=== PATIENT | female | born 1985 | race Caucasian/White ===

== ENCOUNTER 2017-02-17 14:28 | Emergency (ER) | payer SELFPAY ==
[2017-02-17 14:32] VITALS: BP 110/68
--- NOTE | 2017-02-17 15:58 | ER Document Report ---
HPI - HPI Patient complains to provider of: dental pain Onset: Other - wednesday Quality of pain: Achy Severity: Severe Pain Level: 4 Context: Patient presents emergency department with complaints of dental pain to the right bottom tooth. She reports she bit down on some ice and cracked her tooth on Wednesday. She reports she visiting from [place] has been taking Tylenol Motrin and nothing helping with the pain. She denies other symptoms such as fever vomiting diarrhea. She reports she plans on following up with her dentist when she returns to [facility] next week. Associated Symptoms: None Exacerbated by: Denies Relieved by: Denies Similar symptoms previously: No Recently seen / treated by doctor: No - DERM Skin Color: Normal Past Medical History - General Information source: Patient Last Menstrual Period: Implanon - Social History Smoking Status: Current Every Day Smoker Cigarette use (# per day): Yes - half pack a day Frequency of alcohol use: None Drug Abuse: None Family History: None Patient has suicidal ideation: No Patient has homicidal ideation: No - Medical History Medical History: Negative Renal/ Medical History: Denies: Hx Peritoneal Dialysis Surgical Hx: Negative Vertical Provider Document - CONSTITUTIONAL Agree With Documented VS: Yes Exam Limitations: No Limitations General Appearance: WD/WN, No Apparent Distress - INFECTION CONTROL TRAVEL OUTSIDE OF THE [place] IN LAST 30 DAYS: No - HEENT HEENT: Atraumatic, Normocephalic Mouth Diagram: 1 - Chipped tooth noted no erythema no swelling no pustule. no signs of infection Opens mouth wide clear voice no induration - RESPIRATORY O2 Sat by Pulse Oximetry: 96 Course - Re-evaluation Re-evalutation: 02/17/17 16:04 Patient instructed on penicillin verbalizes understanding denies allergies. Patient also instructed to follow up with dental as soon as she returns to [place]. She verbalized understanding to all instructions. - Vital Signs Vital signs: Temp Pulse Resp BP Pulse Ox 98.4 F 71 13 110/68 96 02/17/17 14:31 02/17/17 14:31 02/17/17 14:31 02/17/17 14:31 02/17/17 14:31 Discharge - Discharge Clinical Impression: Pain, dental Condition: Stable Disposition: HOME, SELF-CARE Instructions: Penicillin V K ([facility]), Toothache ([facility]) Additional Instructions: *You have been evaluated for dental pain *Take medication as prescribed *Follow up with a dentist next week when you return to [place] *Return to ED for worsening condition, changes, needs Prescriptions: Penicillin V Potassium [Penicillin Vk 500 mg Tablet] 500 mg PO BID #20 tablet
== END 2017-02-17 16:13 | disposition home or self-care (01) ==
LOC: ER 14:28
DX: K08.9 Disorder of teeth and supporting structures, unspecified (principal); F17.210 Nicotine dependence, cigarettes, uncomplicated
CPT/HCPCS: 99282

== ENCOUNTER 2017-06-08 12:21 | Emergency (ER) | payer SELFPAY ==
[2017-06-08 12:28] VITALS: BP 111/78
[2017-06-08] MEDS ORDERED: IBUPROFEN 800 MG TABLET PO ONE (12:48)
[2017-06-08] MEDS ORDERED: HYDROCODONE/ACETAMINOPHEN 5-325 MG TABLET PO ONE (12:48)
--- NOTE | 2017-06-08 12:53 | ER Document Report ---
HPI - HPI Patient complains to provider of: cough Onset: Other - 2 wks Onset/Duration: Persistent Quality of pain: Sharp Pain Level: 5 Context: Patient presents complaining of nonproductive cough for the past 2 weeks. Patient states she developed right lateral rib pain over the past 2-3 days. Patient denies any fever, nausea, or vomiting. Patient states that her niece who lives in her household was recently diagnosed with whooping cough. Complains of right lateral rib pain that increases with movement of her torso, extremities, with deep inspiration, and coughing. Associated Symptoms: Chest pain - right lateral rib, Nonproductive cough Exacerbated by: Movement, Coughing, Deep breathing Relieved by: Remaining still Similar symptoms previously: No Recently seen / treated by doctor: No - ROS ROS below otherwise negative: Yes Systems Reviewed and Negative: Yes All other systems reviewed and negative - CONSTITUTIONAL Constitutional: DENIES: Fever - EENT EENT: DENIES: Sore Throat, Congestion - CARDIOVASCULAR Cardiovascular: REPORTS: Chest pain - r rib - RESPIRATORY Respiratory: REPORTS: Coughing. DENIES: Trouble Breathing - GASTROINTESTINAL Gastrointestinal: DENIES: Abdominal Pain, Nausea, Patient vomiting - MUSCULOSKELETAL Musculoskeletal: DENIES: Back Pain - DERM Skin Color: Normal Skin Problems: None Past Medical History - General Information source: Patient - Social History Smoking Status: Never Smoker Frequency of alcohol use: None Drug Abuse: None Occupation: none Lives with: Family Family History: None Patient has suicidal ideation: No Patient has homicidal ideation: No - Medical History Medical History: Negative - Past Medical History Cardiac Medical History: Denies: Hx DVT, Hx Pulmonary Embolism Renal/ Medical History: Denies: Hx Peritoneal Dialysis Surgical Hx: Negative - Immunizations Hx Diphtheria, Pertussis, Tetanus Vaccination: No Vertical Provider Document - CONSTITUTIONAL Agree With Documented VS: Yes Exam Limitations: No Limitations General Appearance: WD/WN, No Apparent Distress - INFECTION CONTROL TRAVEL OUTSIDE OF THE [place] IN LAST 30 DAYS: No - HEENT HEENT: Atraumatic, Normocephalic - NECK Neck: Normal Inspection, Supple. negative: Lymphadenopathy-Left, Lymphadenopathy-Right - RESPIRATORY Respiratory: No Respiratory Distress, Other - diminished breath sound. negative : Chest Non-Tender - right lateral chest wall tenderness with palpations, movement of trunk and inspiration, Rales, Rhonchi, Wheezing O2 Sat by Pulse Oximetry: 96 - CARDIOVASCULAR Cardiovascular: Regular Rate, Regular Rhythm, No Murmur - BACK Back: Normal Inspection - MUSCULOSKELETAL/EXTREMETIES Musculoskeletal/Extremeties: JONATHAN CHRISTIE - NEURO Level of Consciousness: Awake, Alert, Appropriate Motor/Sensory: No Motor Deficit - DERM Integumentary: Warm, Dry, No Rash Course - Re-evaluation Re-evalutation: 06/08/17 13:33 The patient has atypical chest pain as the patient's chest pain is not suggestive of pulmonary embolus, cardiac ischemia, aortic dissection, or other serious etiology. Given the extremely low risk of these diagnoses for the test in evaluation for these possibilities does not appear to be indicated at this time. Patient has been instructed to return if the symptoms worsen or change in any way. Pt is PERC negative - Vital Signs Vital signs: Temp Pulse Resp BP Pulse Ox 98.5 F 85 14 111/78 96 06/08/17 12:26 06/08/17 12:26 06/08/17 12:26 06/08/17 12:26 06/08/17 12:26 - Diagnostic Test Radiology reviewed: Image reviewed, Reports reviewed - EKG Interpretation by Me EKG shows normal: Sinus rhythm Rate: Normal Rhythm: NSR Discharge - Discharge Clinical Impression: Chest wall pain, Cough, whooping cough exposure Condition: Stable Disposition: HOME, SELF-CARE Instructions: Anti-Inflammatory Medication ([facility]), Chest Wall Pain ([facility]), Azithromycin ([facility]), Upper Respiratory Illness ([facility]) Additional Instructions: Return immediately for any new or worsening symptoms Followup with your primary care provider, call tomorrow to make a followup appointment Prescriptions: Benzonatate [Tessalon Perle 100 mg Capsule] 100 mg PO Q8HP PRN #20 cap PRN Reason: Azithromycin [Zithromax 250 mg Tablet] 250 mg PO DAILY 4 Days Naproxen [Naprosyn 250 Nmg Tablet] 1 tab PO BID #14 tablet Referrals: [facility] [Provider Group] - Follow up as needed
[2017-06-08] MEDS ORDERED: DIPH/PERTUSS(ACELL)/TETANUS VAC/PF 0.5 ML SYR (>=10YO) IM ONE (12:58)
[2017-06-08] MEDS ORDERED: AZITHROMYCIN 250 MG TABLET PO ONE (12:58)
--- NOTE | 2017-06-08 13:10 | RADIOLOGY REPORT (SQ) ---
EXAM DESCRIPTION: CHEST PA/LAT COMPLETED DATE/TIME: 06/08/2017 1:01 pm REASON FOR STUDY: cough COMPARISON: None. EXAM PARAMETERS: NUMBER OF VIEWS: two views TECHNIQUE: Digital Frontal and Lateral radiographic views of the chest acquired. RADIATION DOSE: NA LIMITATIONS: none FINDINGS: LUNGS AND PLEURA: No opacities, masses or pneumothorax. No pleural effusion. MEDIASTINUM AND HILAR STRUCTURES: No masses or contour abnormalities. HEART AND VASCULAR STRUCTURES: Heart normal size. No evidence for failure. BONES: No acute findings. HARDWARE: None in the chest. OTHER: No other significant finding. IMPRESSION: NO SIGNIFICANT RADIOGRAPHIC FINDING IN THE CHEST. TECHNICAL DOCUMENTATION: JOB ID: [id number] [email or web address]- All Rights Reserved
[2017-06-08] MEDS ORDERED: LIDOCAINE 5% (700 MG) TRANSDERMAL ADH..PATCH TP ONE (13:15)
--- NOTE | 2017-06-08 18:20 | EKG REPORT ---
SEVERITY:- NORMAL ECG - SINUS RHYTHM : Confirmed by: Grant Gary MD 08-Jun-2017 18:20:01
== END 2017-06-08 14:10 | disposition home or self-care (01) ==
LOC: ER 12:21
DX: R05 Cough (principal); R07.89 Other chest pain; R07.81 Pleurodynia; Z20.89 Contact with and (suspected) exposure to other communicable diseases
CPT/HCPCS: 71020; 90471; 90715; 93005; 93010; 99283

== ENCOUNTER 2017-06-11 16:57 | Emergency (ER) | payer SELFPAY ==
[2017-06-11 17:05] VITALS: BP 113/69
[2017-06-11] MEDS ORDERED: LIDOCAINE 5% (700 MG) TRANSDERMAL ADH..PATCH TP ONE (17:27)
--- NOTE | 2017-06-11 17:31 | ER Document Report ---
ED General - General Chief Complaint: Rib Pain Stated Complaint: DIFFICULTY BREATHING/SHARP PAIN ON RIGHT SIDE Time Seen by Provider: 06/11/17 17:13 Mode of Arrival: Ambulatory Information source: Patient Notes: 32 year old female presents to ED for right rib pain for the last 2 weeks. She states she has been coughing and was in the emergency room on the first of the same pain. None of the medicine is helping except for the Lidoderm patch that he received on her last admission. She states the cough is much better but the pain is continuing with any deep breath or moving. TRAVEL OUTSIDE OF THE U[place] IN LAST 30 DAYS: No - HPI Onset: Other - 2 Week Onset/Duration: Persistent Quality of pain: Sharp Severity: Severe Pain Level: 4 Associated symptoms: Nonproductive cough - Cough is much better but she still has some cough, Hurts to breath, Other - Rib pain Exacerbated by: Movement, Coughing, Deep breathing Relieved by: Other - Lidoderm patch Similar symptoms previously: Yes Recently seen / treated by doctor: Yes - Related Data Allergies/Adverse Reactions: No Known Allergies Allergy (Verified 06/11/17 17:04) Past Medical History - General Information source: Patient - Social History Smoking Status: Never Smoker Cigarette use (# per day): No Chew tobacco use (# tins/day): No Smoking Education Provided: No Frequency of alcohol use: None Drug Abuse: None Lives with: Family Family History: None Patient has suicidal ideation: No Patient has homicidal ideation: No - Past Medical History Cardiac Medical History: Reports: None Pulmonary Medical History: Reports: None EENT Medical History: Reports: None Neurological Medical History: Reports: None Endocrine Medical History: Reports: None Renal/ Medical History: Reports: None Malignancy Medical History: Reports: None GI Medical History: Reports: None Musculoskeltal Medical History: Reports None Skin Medical History: Reports None Psychiatric Medical History: Reports: None Traumatic Medical History: Reports: None Infectious Medical History: Reports: None Surgical Hx: Negative Past Surgical History: Reports: None - Immunizations Hx Diphtheria, Pertussis, Tetanus Vaccination: No Review of Systems - Review of Systems Constitutional: No symptoms reported EENT: No symptoms reported Cardiovascular: No symptoms reported Respiratory: Cough - Pain in right lateral ribs, when coughing or taking deep breath, Hurts to breathe Gastrointestinal: No symptoms reported Genitourinary: No symptoms reported Female Genitourinary: No symptoms reported Musculoskeletal: No symptoms reported Skin: No symptoms reported Hematologic/Lymphatic: No symptoms reported Neurological/Psychological: No symptoms reported -: Yes All other systems reviewed and negative Physical Exam - Vital signs Vitals: Temp Pulse Resp BP Pulse Ox 98.4 F 63 18 113/69 97 06/11/17 17:02 06/11/17 17:02 06/11/17 17:02 06/11/17 17:02 06/11/17 17:02 Interpretation: Normal - General General appearance: Appears well, Alert - HEENT Head: Normocephalic, Atraumatic Eyes: Normal Pupils: PERRL - Respiratory Respiratory status: No respiratory distress Chest status: Tender, Pain on movement - Lateral ribs right, Pain with cough, Pain with deep breathing Breath sounds: Normal Chest palpation: Normal - Cardiovascular Rhythm: Regular Heart sounds: Normal auscultation Murmur: No - Abdominal Inspection: Normal Distension: No distension Bowel sounds: Normal Tenderness: Nontender Organomegaly: No organomegaly - Back Back: Normal, Nontender - Extremities General upper extremity: Normal inspection, Nontender, Normal color, Normal ROM , Normal temperature General lower extremity: Normal inspection, Nontender, Normal color, Normal ROM , Normal temperature, Normal weight bearing. No: Navya's sign - Neurological Neuro grossly intact: Yes Cognition: Normal Orientation: AAOx4 Micah Coma Scale Eye Opening: Spontaneous [place] Coma Scale Verbal: Oriented [place] Coma Scale Motor: Obeys Commands [place] Coma Scale Total: 15 Speech: Normal Motor strength normal: LUE, RUE, LLE, RLE Sensory: Normal - Psychological Associated symptoms: Normal affect, Normal mood - Skin Skin Temperature: Warm Skin Moisture: Dry Skin Color: Normal Course - Re-evaluation Re-evalutation: 06/11/17 18:58 She denies any fall or any injuries she states that the pain has been 2 weeks. She states when she was here previously 8 they put a Lidoderm patch on her and that helped but is so she removed it nothing else has helped her pain. Patient was given a Lidoderm patch in the emergency room and a prescription written for the Lidoderm patches. Patient given instructions on the dose of ibuprofen she can take and how much is too much. Patient to follow-up with primary doctor. - Vital Signs Vital signs: Temp Pulse Resp BP Pulse Ox 98.4 F 63 18 113/69 97 06/11/17 17:02 06/11/17 17:02 06/11/17 17:02 06/11/17 17:02 06/11/17 17:02 Discharge - Discharge Clinical Impression: Chest wall pain Condition: Stable Disposition: HOME, SELF-CARE Additional Instructions: CHEST WALL PAIN: Your chest pain may be coming from the chest wall. This is often caused by straining the muscles or joints in the chest during physical activity, direct trauma, coughing, or vigorous vomiting. Persons with arthritis are especially prone to this type of pain, due to inflammation of the cartilage joints near the breast bone. Occasionally, no cause can be found. Rest from strenuous physical activity. This kind of chest pain is usually made worse by movement of the chest. Depending on the symptoms, we may prescribe medicine for pain, muscle relaxation, and antiinflammatory effects. If the pain is new, and seems to be due to muscle strain, cold packs can help. Otherwise, apply gentle warmth to the painful area for 15 minutes every hour or two. You should call contact the doctor immediately if things change. Further evaluation is needed if you develop a fever or cough, if the nature of the pain changes, or if you become short of breath. ICE PACKS: Apply ice packs frequently against the painful area. Many different schedules are recommended, such as "20 minutes on, 20 minutes off" or "one hour ice, two hours rest." If you need to work, you may need to go longer between ice treatments. You should plan to have the area ice packed AT LEAST one fourth of the time. The ice should be applied over the wrap, tape, or splint, or over a layer of cloth -- not directly against the skin. Some ice bags have a built-in cloth and can be put directly on the skin. WARM PACKS: After approximately two days, apply gentle heat (such as a heating pad or hot water bottle) for about 20 to 30 minutes about every two hours -- at least four times daily. Warmth and elevation will help you make a more rapid recovery , and will ease the pain considerably. Do not use HOT heat, and never apply heat for longer than 30 minutes. The continuous heat can invisibly damage skin and muscles -- even when no burn is seen on the surface. Damaged muscles can make you MORE sore. FOLLOW-UP CARE: If you have been referred to a physician for follow-up care, call the physician s office for an appointment as you were instructed or within the next two days. If you experience worsening or a significant change in your symptoms, notify the physician immediately or return to the Emergency Department at any time for re-evaluation. Prescriptions: Lidocaine [Lidoderm 5% (700 mg) Transdermal Patch] 1 patch TP DAILY #14 adh..patch Referrals: [facility] [place] [Provider Group] - Follow up as needed
== END 2017-06-11 17:40 | disposition home or self-care (01) ==
LOC: ER 16:57
DX: R07.89 Other chest pain (principal); R07.81 Pleurodynia; R05 Cough
CPT/HCPCS: 99283

== ENCOUNTER 2018-04-23 19:51 | Emergency (ER) | payer SELFPAY ==
[2018-04-23 20:15] VITALS: BP 124/82
[2018-04-23] MEDS ORDERED: LIDOCAINE 1%/EPINEPHRINE INJ 20 ML VIAL INJ ONE (20:48)
[2018-04-23] MEDS ORDERED: IBUPROFEN 600 MG TABLET PO ONE (21:35)
[2018-04-23] MEDS ORDERED: ACETAMINOPHEN 325 MG TABLET PO ONE (21:35)
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
== END 2018-04-23 22:10 | disposition home or self-care (01) ==
LOC: ER 19:51
DX: S01.511A Laceration without foreign body of lip, initial encounter (principal); Y09 Assault by unspecified means; F17.200 Nicotine dependence, unspecified, uncomplicated
CPT/HCPCS: 99283; 12011; J3490

== ENCOUNTER 2018-11-23 19:54 | Emergency (ER) | payer SELFPAY ==
[2018-11-23] MEDS ORDERED: NORMAL SALINE 1000 ML 1,000 ML IV ONE ×2 (20:26→21:34)
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
[2018-11-23] MEDS ORDERED: ONDANSETRON HCL INJ/PF 4 MG/2 ML SDV IV ONE (20:38)
[2018-11-23] MEDS ORDERED: FAMOTIDINE INJ/PF 20 MG/2 ML SDV IV ONE (20:38)
[2018-11-23 21:07] LABS: ABSOLUTE LYMPHOCYTES (AUTO) 1.8 10^3/uL (0.5-4.7); ABSOLUTE NEUT (AUTO) 13.8 10^3/uL (1.7-8.2); BASOPHILS % (AUTO) 0.1 % (0-2); HEMATOCRIT 37.7 % (36.0-47.0); HEMOGLOBIN 12.8 g/dL (12.0-15.5); LYMPHOCYTES % (AUTO) 10.5 % (13-45); MEAN CORPUSCULAR HGB CONC 33.8 g/dL (32.0-36.0); MEAN CORPUSCULAR VOLUME 95 fl (80-97); PLATELET COUNT 266 10^3/uL (150-450); RED BLOOD COUNT 3.98 10^6/uL (3.72-5.28); RED CELL DISTRIBUTION WIDTH 13.3 % (11.5-14.0); SEGMENTED NEUTROPHILS % (AUTO) 83.4 % (42-78); TOTAL CELLS COUNTED % (AUTO) 100 %; WHITE BLOOD COUNT 16.6 10^3/uL (4.0-10.5)
--- NOTE | 2018-11-23 21:08 | ER Document Report ---
ED General - General Chief Complaint: Abdominal Pain Stated Complaint: ABDOMINAL AND CHEST PAIN,SHORTNESS OF BREATH Time Seen by Provider: 11/23/18 20:25 Notes: Patient is a 33-year-old female that is , approximately 6 weeks gravid that presents to the emergency department for chief complaint of nausea, vomiting and abdominal discomfort. Patient apparently started having significant nausea and vomiting that occurred last night, was seen at another emergency department at that time, given IV fluids, and antiemetics, was discharged home with Zofran, but her symptoms persisted through today, she had worsening vomiting, and cannot keep anything down at home, she recently had an ultrasound that confirmed an IUP, that was performed yesterday morning at the health department. She denies noting fevers, chills, but is complaining of generalized body aches, as a result of all the vomiting. No sick contacts that they are aware of. She denies having any significant cough, dysuria, hematuria or vaginal bleeding or discharge. Past Medical History: Denies chronic medical conditions Past Surgical History: Denies surgical history Social History: Former smoker, denies current alcohol use admits to marijuana use Family History: Reviewed and noncontributory for presenting illness Allergies: Reviewed, see documented allergy list. REVIEW OF SYSTEMS: Other than noted above, the 12 point review of systems was reviewed with the patient and were negative, all pertinent findings are included in the HPI. PHYSICAL EXAMINATION: Vital signs reviewed, nursing noted reviewed. GENERAL: Ill-appearing female, appears to be uncomfortable, complaining of nausea HEAD: Atraumatic, normocephalic. EYES: Eyes appear normal, extraocular movements intact, sclera anicteric, conjunctiva are normal. ENT: nares patent, oropharynx clear without exudates. Dry mucous membranes. NECK: Normal range of motion, supple without lymphadenopathy LUNGS: Breath sounds clear to auscultation bilaterally and equal. No wheezes rales or rhonchi. HEART: Regular rate and rhythm without murmurs ABDOMEN: Soft, mild discomfort with palpation of the abdomen, diffusely, normoactive bowel sounds. No rebound, guarding, or rigidity. No masses appreciated. EXTREMITIES: Nontender, good range of motion, no pitting or edema. NEUROLOGICAL: No focal neurological deficits. Moves all extremities spontaneously Motor and sensory grossly intact on exam. PSYCH: Flat affect, but answering questions appropriately SKIN: Warm, Dry, normal turgor, no rashes or lesions noted on exposed skin TRAVEL OUTSIDE OF THE [place] IN LAST 30 DAYS: No - Related Data Allergies/Adverse Reactions: No Known Allergies Allergy (Verified 06/11/17 17:04) Past Medical History - Social History Smoking Status: Former Smoker Drug Abuse: Marijuana Family History: Reviewed & Not Pertinent - Past Medical History Cardiac Medical History: Denies: Hx DVT, Hx Pulmonary Embolism Renal/ Medical History: Denies: Hx Peritoneal Dialysis - Immunizations Hx Diphtheria, Pertussis, Tetanus Vaccination: No Physical Exam - Vital signs Vitals: Temp Pulse Resp BP Pulse Ox 98.2 F 64 16 135/115 H 100 11/23/18 20:15 11/23/18 20:15 11/23/18 20:15 11/23/18 20:15 11/23/18 20:15 Course - Re-evaluation Re-evalutation: Patient seen and examined vital signs reviewed. Laboratory data and imaging were ordered as appropriate for the patient's pr esenting symptoms and complaint, with consideration of any critical or life threatening conditions that may be associated with their obtained history and exam as noted above. Patient was treated with several liters of IV fluid bolusing, IV Phenergan, and Reglan for her nausea Results were reviewed when available and demonstrated leukocytosis, and hypokalemia which she was given replacement for, hCG was appropriately elevated and consistent with patient's current state of , UA negative for signs of infection, blood work is essentially otherwise unremarkable, patient's leukocytosis was most likely consistent and from acute phase reactant from multiple episodes of vomiting, that was essentially intractable at home The patient was re-evaluated and was improved and did not have any further vomiting in the emergency department he was noted to be positive for THC, it is possible that this was worsening her vomiting as well, patient made aware that this could cause cyclic vomiting, and should be overall avoided in . Evaluation was most consistent with hyperemesis gravidarum, will prescribe the patient Reglan as it seemed to help her the most, and to follow-up with [facility], encouraged oral hydration at home, and gentle reintroduction of diet. Results were discussed with the patient at this point, after careful consideration I feel that that patient can be discharged from the emergency department, the patient was educated treatments and reasons to return to the em ergency department based on their presumed diagnosis as noted above, they were advised to followup with a primary care physician in 2-3 days. Patient was agreeable to plan of care. *Note is created using voice recognition software and may contain spelling, syntax or grammatical errors. Laboratory 11/23/18 11/23/18 11/23/18 20:21 20:46 20:46 WBC 16.6 H RBC 3.98 Hgb 12.8 Hct 37.7 MCV 95 MCH 32.0 MCHC 33.8 RDW 13.3 Plt Count 266 Seg Neutrophils % 83.4 H Lymphocytes % 10.5 L Monocytes % 6.0 Eosinophils % 0.0 Basophils % 0.1 Absolute Neutrophils 13.8 H Absolute Lymphocytes 1.8 Absolute Monocytes 1.0 Absolute Eosinophils 0.0 Absolute Basophils 0.0 VBG pH VBG pCO2 VBG HCO3 VBG Base Excess Sodium 139.3 Potassium 3.3 L Chloride 105 Carbon Dioxide 22 Anion Gap 12 BUN 10 Creatinine 0.50 L Est GFR ( Amer) > 60 Est GFR (Non-Af Amer) > 60 Glucose 142 H POC Glucose 127 H Calcium 9.7 Total Bilirubin 0.5 Direct Bilirubin 0.3 Neonat Total Bilirubin Not Reportable Neonat Direct Bilirubin Not Reportable Neonat Indirect Bili Not Reportable AST 25 ALT 28 Alkaline Phosphatase 72 Creatine Kinase 39 CK-MB (CK-2) Troponin I Total Protein 7.5 Albumin 4.7 Lipase 51.8 Beta HCG, Quant 474991.00 H Total Beta HCG POSITIVE Urine Color Urine Appearance Urine pH Ur Specific Berino Urine Protein Urine Glucose (UA) Urine Ketones Urine Blood Urine Nitrite Urine Bilirubin Urine Urobilinogen Ur Leukocyte Esterase Urine WBC (Auto) Urine RBC (Auto) Squamous Epi Cells Auto Urine Mucus (Auto) Urine Ascorbic Acid Urine Opiates Screen Urine Methadone Screen Ur Barbiturates Screen Ur Phencyclidine Scrn Ur Amphetamines Screen U Benzodiazepines Scrn Urine Cocaine Screen U Marijuana (THC) Screen Influenza A (Rapid) Influenza B (Rapid) 11/23/18 11/23/18 11/23/18 20:46 20:46 22:15 WBC RBC Hgb Hct MCV MCH MCHC RDW Plt Count Seg Neutrophils % Lymphocytes % Monocytes % Eosinophils % Basophils % Absolute Neutrophils Absolute Lymphocytes Absolute Monocytes Absolute Eosinophils Absolute Basophils VBG pH 7.43 H VBG pCO2 33.6 L VBG HCO3 21.7 VBG Base Excess -1.9 Sodium Potassium Chloride Carbon Dioxide Anion Gap BUN Creatinine Est GFR ( Amer) Est GFR (Non-Af Amer) Glucose POC Glucose Calcium Total Bilirubin Direct Bilirubin Neonat Total Bilirubin Neonat Direct Bilirubin Neonat Indirect Bili AST ALT Alkaline Phosphatase Creatine Kinase CK-MB (CK-2) < 0.22 Troponin I < 0.012 Total Protein Albumin Lipase Beta HCG, Quant Total Beta HCG Urine Color YELLOW Urine Appearance SLIGHTLY-CLOUDY Urine pH 6.0 Ur Specific Berino 1.020 Urine Protein 100 H Urine Glucose (UA) NEGATIVE Urine Ketones 80 H Urine Blood NEGATIVE Urine Nitrite NEGATIVE Urine Bilirubin NEGATIVE Urine Urobilinogen 2.0 H Ur Leukocyte Esterase NEGATIVE Urine WBC (Auto) 4 Urine RBC (Auto) 2 Squamous Epi Cells Auto 5 Urine Mucus (Auto) MANY Urine Ascorbic Acid NEGATIVE Urine Opiates Screen Urine Methadone Screen Ur Barbiturates Screen Ur Phencyclidine Scrn Ur Amphetamines Screen U Benzodiazepines Scrn Urine Cocaine Screen U Marijuana (THC) Screen Influenza A (Rapid) Influenza B (Rapid) 11/23/18 11/23/18 22:15 22:15 WBC RBC Hgb Hct MCV MCH MCHC RDW Plt Count Seg Neutrophils % Lymphocytes % Monocytes % Eosinophils % Basophils % Absolute Neutrophils Absolute Lymphocytes Absolute Monocytes Absolute Eosinophils Absolute Basophils VBG pH VBG pCO2 VBG HCO3 VBG Base Excess Sodium Potassium Chloride Carbon Dioxide Anion Gap BUN Creatinine Est GFR ( Amer) Est GFR (Non-Af Amer) Glucose POC Glucose Calcium Total Bilirubin Direct Bilirubin Neonat Total Bilirubin Neonat Direct Bilirubin Neonat Indirect Bili AST ALT Alkaline Phosphatase Creatine Kinase CK-MB (CK-2) Troponin I Total Protein Albumin Lipase Beta HCG, Quant Total Beta HCG Urine Color Urine Appearance Urine pH Ur Specific Berino Urine Protein Urine Glucose (UA) Urine Ketones Urine Blood Urine Nitrite Urine Bilirubin Urine Urobilinogen Ur Leukocyte Esterase Urine WBC (Auto) Urine RBC (Auto) Squamous Epi Cells Auto Urine Mucus (Auto) Urine Ascorbic Acid Urine Opiates Screen NEGATIVE Urine Methadone Screen NEGATIVE Ur Barbiturates Screen NEGATIVE Ur Phencyclidine Scrn NEGATIVE Ur Amphetamines Screen NEGATIVE U Benzodiazepines Scrn NEGATIVE Urine Cocaine Screen NEGATIVE U Marijuana (THC) Screen UNCONFIRMED POSITIVE Influenza A (Rapid) NEGATIVE Influenza B (Rapid) NEGATIVE Chest X-Ray 11/23/18 21:35 IMPRESSION: No acute cardiopulmonary abnormality. - Vital Signs Vital signs: Temp Pulse Resp BP Pulse Ox 98.2 F 60 10 L 143/77 H 100 11/23/18 20:15 11/23/18 20:27 11/23/18 21:01 11/23/18 21:00 11/23/18 21:01 - Laboratory Result Diagrams: 11/23/18 20:46 11/23/18 20:46 Laboratory results interpreted by me: 11/23/18 11/23/18 11/23/18 20:21 20:46 20:46 WBC 16.6 H Seg Neutrophils % 83.4 H Lymphocytes % 10.5 L Absolute Neutrophils 13.8 H VBG pH VBG pCO2 Potassium 3.3 L Creatinine 0.50 L Glucose 142 H POC Glucose 127 H Beta HCG, Quant 925490.00 H Urine Protein Urine Ketones Urine Urobilinogen 11/23/18 11/23/18 20:46 22:15 WBC Seg Neutrophils % Lymphocytes % Absolute Neutrophils VBG pH 7.43 H VBG pCO2 33.6 L Potassium Creatinine Glucose POC Glucose Beta HCG, Quant Urine Protein 100 H Urine Ketones 80 H Urine Urobilinogen 2.0 H Discharge - Discharge Clinical Impression: Nausea and vomiting Qualifiers: Vomiting type: unspecified Vomiting Intractability: non-intractable Qualified Code(s): R11.2 - Nausea with vomiting, unspecified Condition: Stable Disposition: HOME, SELF-CARE Instructions: Hyperemesis Gravidarum ([facility]) Additional Instructions: Please follow-up with [facility], take the medication as prescribed, if you have worsening symptoms, or cannot hold fluids down, do not hesitate to return to the emergency department to be reevaluated. Prescriptions: Metoclopramide HCl [Reglan 10 mg Tablet] 10 mg PO Q8H PRN #15 tablet PRN Reason: NAUSEA/VOMITING Referrals: [facility] [Provider Group] - Follow up in 3-5 days
[2018-11-23 21:10] LABS: VENOUS BLOOD BASE EXCESS -1.9 mmol/L; VENOUS BLOOD HCO3 21.7 mmol/L (20-32); VENOUS BLOOD PCO2 33.6 mmHg (35-63); VENOUS BLOOD PH 7.43 (7.30-7.42)
[2018-11-23 21:27] LABS: ALANINE AMINOTRANSFERASE 28 U/L (9-52); ALBUMIN 4.7 g/dL (3.5-5.0); ALKALINE PHOSPHATASE 72 U/L (38-126); ANION GAP 12 (5-19); ASPARTATE AMINO TRANSFERASE 25 U/L (14-36); BILIRUBIN,DIRECT 0.3 mg/dL (0.0-0.4); BILIRUBIN,TOTAL 0.5 mg/dL (0.2-1.3); BLOOD UREA NITROGEN 10 mg/dL (7-20); CALCIUM 9.7 mg/dL (8.4-10.2); CARBON DIOXIDE 22 mmol/L (22-30); CHLORIDE 105 mmol/L (98-107); CREATINE KINASE 39 U/L (30-135); GLUCOSE 142 mg/dL (75-110); LIPASE 51.8 U/L (23-300); POTASSIUM 3.3 mmol/L (3.6-5.0); SODIUM 139.3 mmol/L (137-145); TOTAL PROTEIN 7.5 g/dL (6.3-8.2)
[2018-11-23] MEDS ORDERED: PROMETHAZINE HCL INJ 25 MG/1 ML VIAL IV ONE (21:34)
[2018-11-23 21:39] LABS: CREATINE KINASE MB < 0.22 ng/mL (<4.55); TROPONIN I < 0.012 ng/mL
--- NOTE | 2018-11-23 22:12 | RADIOLOGY REPORT (SQ) ---
XR CHEST 2 VIEWS HISTORY: Cough. COMPARISON: 06/08/2017 FINDINGS: The cardiomediastinal silhouette is unremarkable. The lungs are clear. No pleural effusion or pneumothorax is identified. No acute osseous findings are seen. IMPRESSION: No acute cardiopulmonary abnormality.
[2018-11-23 22:39] LABS: APPEARANCE,URINE SLIGHTLY-CLOUDY; BILIRUBIN,URINE NEGATIVE (NEGATIVE); COLOR,URINE YELLOW; GLUCOSE, URINE NEGATIVE (NEGATIVE); KETONES,URINE 80 mg/dL (NEGATIVE); LEUKOCYTE ESTERASE,URINE NEGATIVE (NEGATIVE); NITRITE,URINE NEGATIVE (NEGATIVE); PROTEIN,URINE 100 mg/dL (NEGATIVE)
[2018-11-23] MEDS ORDERED: POTASSIUM CHLORIDE 10 MEQ CAPSULE.ER PO ONE (22:43)
[2018-11-23 22:51] LABS: A TYPE INFLUENZA AG NEGATIVE (NEGATIVE); B INFLUENZA AG NEGATIVE (NEGATIVE)
[2018-11-23 22:54] LABS: URINE AMPHETAMINES SCREEN NEGATIVE; URINE BARBITURATES SCREEN NEGATIVE; URINE BENZODIAZEPINES SCREEN NEGATIVE; URINE COCAINE SCREEN NEGATIVE; URINE MARIJUANA (THC) SCREEN UNCONFIRMED POSITIVE; URINE METHADONE SCREEN NEGATIVE; URINE PHENCYCLIDINE SCREEN NEGATIVE
[2018-11-23] MEDS ORDERED: NORMAL SALINE 500 ML IV ONE (23:19)
[2018-11-23] MEDS ORDERED: METOCLOPRAMIDE HCL INJ/PF 10 MG/2 ML SDV IV ONE (23:19)
[2018-11-24 01:55] VITALS: BP 106/64
--- NOTE | 2018-11-24 09:20 | EKG REPORT ---
SEVERITY:- BORDERLINE ECG - SINUS RHYTHM BORDERLINE T ABNORMALITIES, DIFFUSE LEADS : Confirmed by: Terrence Zaidi 24-Nov-2018 09:18:38
== END 2018-11-24 01:30 | disposition home or self-care (01) ==
LOC: ER 19:54
DX: O21.9 Vomiting of pregnancy, unspecified (principal); O99.320 Drug use complicating pregnancy, unspecified trimester; F12.10 Cannabis abuse, uncomplicated; O26.899 Other specified pregnancy related conditions, unspecified trimester; R10.9 Unspecified abdominal pain; O99.119 Other diseases of the blood and blood-forming organs and certain disorders involving the immune mechanism complicating pregnancy, unspecified trimester; D72.829 Elevated white blood cell count, unspecified; O99.280 Endocrine, nutritional and metabolic diseases complicating pregnancy, unspecified trimester; E87.6 Hypokalemia; Z87.891 Personal history of nicotine dependence; Z3A.00 Weeks of gestation of pregnancy not specified
CPT/HCPCS: 93005; 99284; 96361; 96374; 96375; 36415; 82553; 82962; 82550; 84702; 83690; 85025; 80053; 81001; 84484; 80307; 82803; 87804; 71046; 93010; J2765; J2550; J2405; J7030; J7040; S0028

== ENCOUNTER → 2018-12-09 | Outpatient (CLI) | payer MEDICAID ==
--- NOTE | 2018-12-09 15:41 | RADIOLOGY REPORT (SQ) ---
EXAM DESCRIPTION: U/S [id number] TRNABD 1GES W/ODOP COMPLETED DATE/TIME: 12/09/2018 3:28 pm REASON FOR STUDY: ENCOUNTER FOR SUPERVISIOON OF OTHER NORMAL , FIRST TRIMESTER Z34.81 ENCO UNTER FOR SUPRVSN OF NORMAL , FIRST TRIM COMPARISON: None. TECHNIQUE: Transabdominal static and realtime grayscale images acquired of the pelvis. Additional se lected spectral and color Doppler images recorded. All images stored on PACs. bHCG: Not available. CLINICAL DATES: Not available. LIMITATIONS: None. FINDINGS: FETUS: Single Living intrauterine . ULTRASOUND EGA: 9 weeks 0 days. ULTRASOUND ENA: 07/14/2019. EFW: Not applicable less than 20 weeks. CRL: Visualized. Measured 2.4 cm. FHR: 175 beats per minute. SURVEY: No visualized anomalies. AMNIOTIC FLUID: Adequate amount. PLACENTA: Not yet developed due to early gestation. SUBCHORIONIC BLEED: No. SIZE OF BLEED: Not applicable. UTERUS: No masses. No anomalies. CERVICAL LENGTH: 3.8 cm. Closed. RIGHT ADNEXA: Normal ovary with normal vascular flow. No adnexal free fluid. No adnexal masses. LEFT ADNEXA: Ovary not identified due to poor acoustical window. No adnexal free fluid. No adnexal masses. FREE FLUID: None. OTHER: No other significant finding. IMPRESSION: LIVING INTRAUTERINE . EGA 9 WEEKS 0 DAYS. Trimester of : First - 0 to 13 weeks. TECHNICAL DOCUMENTATION: JOB ID: [id number]- All Rights Reserved Reading location - IP/workstation name: [email or web address]
== END ==
LOC: EDSTATUS 08:46 → RAD 14:48
PROVIDERS: ATTEND Nurse Practitioner
DX: Z34.81 Encounter for supervision of other normal pregnancy, first trimester (principal)
CPT/HCPCS: 76801

== ENCOUNTER 2019-05-12 12:26 | Outpatient (CLI) | payer MEDICAID ==
[2019-05-12 14:14] LABS: APPEARANCE,URINE CLOUDY; BILIRUBIN,URINE NEGATIVE (NEGATIVE); COLOR,URINE YELLOW; GLUCOSE, URINE NEGATIVE (NEGATIVE); KETONES,URINE NEGATIVE (NEGATIVE); LEUKOCYTE ESTERASE,URINE NEGATIVE (NEGATIVE); NITRITE,URINE NEGATIVE (NEGATIVE); PROTEIN,URINE NEGATIVE (NEGATIVE); URINE SPECIFIC GRAVITY 1.014; UROBILINOGEN,URINE NEGATIVE mg/dL (<2.0)
[2019-05-12 14:24] LABS: URINE AMPHETAMINES SCREEN NEGATIVE; URINE BARBITURATES SCREEN NEGATIVE; URINE BENZODIAZEPINES SCREEN NEGATIVE; URINE COCAINE SCREEN NEGATIVE; URINE METHADONE SCREEN NEGATIVE; URINE PHENCYCLIDINE SCREEN NEGATIVE
[2019-05-12 14:28] LABS: URINE MARIJUANA (THC) SCREEN UNCONFIRMED POSITIVE
--- NOTE | 2019-05-12 15:25 | RADIOLOGY REPORT (SQ) ---
EXAM DESCRIPTION: U/S PROFILE W/O STRESS COMPLETED DATE/TIME: 05/12/2019 3:10 pm REASON FOR STUDY: IUGR 30 wks COMPARISON: OB ULTRASOUND 12/09/2018 TECHNIQUE: Limited rangel-scale realtime and static images of the fetus to measure specified parameter s. LIMITATIONS: None. FINDINGS: HEART RATE: 143 beats per minute. EBA: 12 cm . BREATHING MOVEMENT: 2 points. MOVEMENT: 2 points. POSTURE AND TONE: 2 points. QUALITATIVE BEA: 2 points. OTHER: No other significant finding. IMPRESSION: BIOPHYSICAL PROFILE: 06/15. Trimester of : Third - 28 weeks to delivery COMMENT: BREATHING MOVEMENTS: 2 POINTS: PRESENT 0 POINTS: ABSENT MOTION: 2 POINTS: PRESENT 0 POINTS: ABSENT TONE: 2 POINTS: PRESENT 0 POINTS: ABSENT AMNIOTIC FLUID VOLUME: 2 POINTS: LARGEST POCKET GREATER THAN 2 CM DEPTH. 0 POINTS: NO POCKET OF 2 CM. TECHNICAL DOCUMENTATION: JOB ID: [id number]- All Rights Reserved Reading location - IP/workstation name: [email or web address]
== END 2019-05-12 15:53 | disposition home or self-care (01) ==
LOC: LC 12:26
PROVIDERS: ATTEND Obstetrics & Gynecology
PROC: 4A1HXCZ Monitoring of Products of Conception, Cardiac Rate, External Approach (ICD-10-PCS; principal; 2019-05-12)
DX: O36.5930 Maternal care for other known or suspected poor fetal growth, third trimester, not applicable or unspecified (principal); Z3A.30 30 weeks gestation of pregnancy
CPT/HCPCS: 59899; 81001; 80307; 76819; G0480 ×2; 80349

== ENCOUNTER 2019-05-25 09:52 | Inpatient (IN) | payer MEDICAID ==
[2019-05-25] MEDS ORDERED: RINGERS SOLUTION,LACTATED 1,000 ML IV ONE ×2 (10:41→11:22)
[2019-05-25 11:11] LABS: APPEARANCE,URINE CLOUDY; BILIRUBIN,URINE NEGATIVE (NEGATIVE); COLOR,URINE YELLOW; GLUCOSE, URINE NEGATIVE (NEGATIVE); KETONES,URINE NEGATIVE (NEGATIVE); LEUKOCYTE ESTERASE,URINE NEGATIVE (NEGATIVE); NITRITE,URINE NEGATIVE (NEGATIVE); PROTEIN,URINE 100 mg/dL (NEGATIVE); URINE SPECIFIC GRAVITY 1.019; UROBILINOGEN,URINE NEGATIVE mg/dL (<2.0)
[2019-05-25] MEDS ORDERED: PENICILLIN G POTASSIUM 5,000,000 UNIT in DEXTROSE 5%-WATER 100 ML IV ONE (11:22)
[2019-05-25] MEDS ORDERED: BETAMET ACET/BETAMET NA INJ 6 MG/1 ML IM ONE ×2 (11:22→23:30)
[2019-05-25] MEDS ORDERED: BETAMET ACET/BETAMET NA INJ 6 MG/1 ML ONE ×2 (11:25→23:09)
[2019-05-25] MEDS ORDERED: PENICILLIN G-K 5 MILLION UNIT VIAL ONE ×4 (11:25→23:10)
[2019-05-25] MEDS ORDERED: OXYTOCIN/NORMAL SALINE 20 UNIT/1,000 ML RTUINJ ONE (11:25)
[2019-05-25] MEDS ORDERED: LIDOCAINE 1% INJ-PF (10 MG/ML) 30 ML SDV ONE (11:25)
[2019-05-25 11:32] LABS: URINE AMPHETAMINES SCREEN NEGATIVE; URINE BARBITURATES SCREEN NEGATIVE; URINE BENZODIAZEPINES SCREEN NEGATIVE; URINE COCAINE SCREEN NEGATIVE; URINE METHADONE SCREEN NEGATIVE; URINE PHENCYCLIDINE SCREEN NEGATIVE
--- NOTE | 2019-05-25 11:32 | RADIOLOGY REPORT (SQ) ---
EXAM DESCRIPTION: U/S OB LIMITED COMPLETED DATE/TIME: 05/25/2019 11:20 am REASON FOR STUDY: cervical length for c/o contractions COMPARISON: 05/12/2019 TECHNIQUE: Limited transvaginal and transabdominal grayscale ultrasound for evaluation of specific r equested obstetrical parameters. LIMITATIONS: None. FINDINGS: CERVICAL LENGTH: The cervix is effaced, and open with bulging membranes. This report was called to Enid Bolden, nurse assistant service manager, 1120 hours 05/25/2019. BEA: In total is 12.9 cm. FHR: 123 beats per minute. PRESENTATION: Cephalic. PLACENTA: Posterior fundal grade 1 ANATOMY: Not assessed OTHER: No other significant findings. IMPRESSION: Cervix is effaced and open with bulging membranes. Trimester of : Third trimester - 28 weeks to delivery. COMMENT: Pertinent findings on the imaging study reported as a CRITICAL RESULT to ENID BOLDEN [facility] at11 :20 on 05/25/2019. Category of Critical Result: Effaced cervix with bulging membranes TECHNICAL DOCUMENTATION: JOB ID: [id number]- All Rights Reserved Reading location - IP/workstation name: [email or web address]
[2019-05-25] MEDS ORDERED: MISOPROSTOL 0.2 MG TABLET ONE (11:44)
[2019-05-25] MEDS ORDERED: MAGNESIUM SULFATE 4 GM/100 ML RTUPB IV ONE ×2 (12:13→12:23)
[2019-05-25] MEDS ORDERED: ONDANSETRON HCL INJ/PF 4 MG/2 ML SDV IV ONE ×2 (12:19→21:12)
[2019-05-25] MEDS ORDERED: MAGNESIUM SULFATE 20 GM/500 ML RTUINJ IV ONE ×2 (12:23→23:14)
[2019-05-25] MEDS ORDERED: ONDANSETRON HCL INJ/PF 4 MG/2 ML SDV ONE ×2 (12:23→21:25)
[2019-05-25 12:45] LABS: ABSOLUTE BASOPHILS # (AUTO) 0.1 10^3/uL (0.0-0.2); ABSOLUTE EOSINOPHILS # (AUTO) 0.1 10^3/uL (0.0-0.6); ABSOLUTE LYMPHOCYTES (AUTO) 2.3 10^3/uL (0.5-4.7); ABSOLUTE MONOCYTES (AUTO) 0.6 10^3/uL (0.1-1.4); ABSOLUTE NEUT (AUTO) 9.1 10^3/uL (1.7-8.2); EOSINOPHILS % (AUTO) 0.5 % (0-6); HEMATOCRIT 41.7 % (36.0-47.0); LYMPHOCYTES % (AUTO) 18.9 % (13-45); MEAN CORPUSCULAR HEMOGLOBIN 31.5 pg (27.0-33.4); MEAN CORPUSCULAR HGB CONC 33.6 g/dL (32.0-36.0); MEAN CORPUSCULAR VOLUME 94 fl (80-97); PLATELET COUNT 185 10^3/uL (150-450); RED BLOOD COUNT 4.45 10^6/uL (3.72-5.28); RED CELL DISTRIBUTION WIDTH 14.2 % (11.5-14.0); SEGMENTED NEUTROPHILS % (AUTO) 74.6 % (42-78); TOTAL CELLS COUNTED % (AUTO) 100 %; WHITE BLOOD COUNT 12.1 10^3/uL (4.0-10.5)
[2019-05-25] MEDS: MAGNESIUM SULFATE 20 GM/500 ML RTUINJ IV PRN ×2 (13:01→23:28)
[2019-05-25 13:07] LABS: URINE MARIJUANA (THC) SCREEN UNCONFIRMED POSITIVE
[2019-05-25] MEDS ORDERED: EPHEDRINE SULFATE INJ 50 MG/1 ML AMPULE ONE (13:19)
[2019-05-25] MEDS ORDERED: FENTANYL/BUPIVACAINE/NS/PF 300 MCG/150 ML RTUINJ EPI ONE (13:19)
[2019-05-25] MEDS ORDERED: BUPIVACAINE HCL 0.25 % INJ/PF (2.5 MG/1 ML) 30 ML VIAL ONE (13:19)
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
[2019-05-25 14:37] LABS: INTERNATIONAL RATION (INR) 0.87; PROTHROMBIN TIME 11.8 SEC (11.4-15.4)
[2019-05-25 14:38] LABS: FIBRINOGEN 545 mg/dL (209-497); PARTIAL THROMBOPLASTIN TIME 27.2 SEC (23.5-35.8)
[2019-05-25] MEDS ORDERED: ACETAMINOPHEN 325 MG TABLET ONE (15:14)
[2019-05-25] MEDS ORDERED: ACETAMINOPHEN 325 MG TABLET PO ONE (15:15)
[2019-05-25] MEDS: PENICILLIN G POTASSIUM 2,500,000 UNIT in DEXTROSE 5%-WATER 50 ML IV SCH ×3 (15:26→23:31)
[2019-05-25] MEDS ORDERED: MAG HYDROX/AL HYDROX/SIMETH SUSP 30 ML UDCUP PO ONE (21:13)
[2019-05-25] MEDS ORDERED: MAG HYDROX/AL HYDROX/SIMETH SUSP 30 ML UDCUP ONE (21:25)
[2019-05-26] MEDS ORDERED: PENICILLIN G-K 5 MILLION UNIT VIAL ONE ×2 (03:29→07:24)
[2019-05-26] MEDS ORDERED: FENTANYL/BUPIVACAINE/NS/PF 300 MCG/150 ML RTUINJ EPI ONE (03:33)
[2019-05-26] MEDS: PENICILLIN G POTASSIUM 2,500,000 UNIT in DEXTROSE 5%-WATER 50 ML IV SCH ×3 (03:34→11:29)
[2019-05-26] MEDS ORDERED: ACETAMINOPHEN 325 MG TABLET PO ONE ×2 (04:05→12:25)
[2019-05-26] MEDS ORDERED: ACETAMINOPHEN 325 MG TABLET ONE ×2 (04:10→12:21)
[2019-05-26] MEDS ORDERED: IBUPROFEN 800 MG TABLET ONE (11:31)
[2019-05-26] MEDS ORDERED: MEASLES,MUMPS&RUBELLA VACC/PF 0.5 ML VIAL SUBCUT PRN (13:21)
[2019-05-26] MEDS ORDERED: ACETAMINOPHEN WITH CODEINE #3 TABLET PO PRN (13:21)
[2019-05-26] MEDS ORDERED: OXYTOCIN/NORMAL SALINE 20 UNIT/1,000 ML RTUINJ IV PRN (13:21)
[2019-05-26] MEDS ORDERED: ZOLPIDEM TARTRATE 5 MG TABLET PO PRN (13:21)
[2019-05-26] MEDS ORDERED: DIBUCAINE 1% OINTMENT 56 GM TP PRN (13:21)
[2019-05-26] MEDS ORDERED: DIPH/PERTUSS(ACELL)/TETANUS VAC/PF 0.5 ML SYR (>=10YO) IM PRN (13:21)
[2019-05-26] MEDS ORDERED: BENZOCAINE/MENTHOL AEROSOL SPRAY 56 ML TOP PRN (13:21)
[2019-05-26] MEDS ORDERED: ONDANSETRON HCL INJ/PF 4 MG/2 ML SDV ONE (15:14)
[2019-05-26] MEDS: DOCUSATE SODIUM 100 MG CAPSULE PO SCH (17:08)
[2019-05-26] MEDS: FERROUS SULFATE 325 MG TABLET PO SCH (17:08)
[2019-05-26] MEDS: IBUPROFEN 800 MG TABLET PO SCH (21:47)
[2019-05-27] MEDS: IBUPROFEN 800 MG TABLET PO SCH (06:28)
[2019-05-27 07:27] LABS: HEMATOCRIT 41.2 % (36.0-47.0); HEMOGLOBIN 13.8 g/dL (12.0-15.5); MEAN CORPUSCULAR HEMOGLOBIN 32.1 pg (27.0-33.4); MEAN CORPUSCULAR HGB CONC 33.6 g/dL (32.0-36.0); MEAN CORPUSCULAR VOLUME 96 fl (80-97); PLATELET COUNT 209 10^3/uL (150-450); RED BLOOD COUNT 4.31 10^6/uL (3.72-5.28); RED CELL DISTRIBUTION WIDTH 14.6 % (11.5-14.0); WHITE BLOOD COUNT 18.3 10^3/uL (4.0-10.5)
[2019-05-27] MEDS ORDERED: SENNOSIDES/DOCUSATE 8.6-50 MG 1 EACH TABLET PO SCH (10:00)
[2019-05-27] MEDS: PRENATAL VITAMIN W DHA CAPSULE PO SCH ×2 (10:27→10:29)
[2019-05-27] MEDS: FERROUS SULFATE 325 MG TABLET PO SCH (10:28)
[2019-05-27] MEDS: DOCUSATE SODIUM 100 MG CAPSULE PO SCH (10:28)
--- NOTE | 2019-05-27 11:00 | PDOC PROGRESS REPORT ---
Subjective-OB Progress Note for:: 05/27/19 - PP Day#1, s/p delivery at 32 wks, pt doing well today, occassional elevated BP, pt denies headache, pumping breast milk, O+, rubella immune. Physical Exam (OB) Vital Signs: Temp Pulse Resp BP Pulse Ox 97.8 F 59 L 20 162/85 H 100 05/27/19 08:35 05/27/19 08:35 05/27/19 08:35 05/27/19 08:35 05/26/19 19:25 Intake & Output 05/26/19 05/27/19 05/28/19 06:59 06:59 06:59 Intake Total 500 200 Balance 500 200 Weight 53.8 kg - General General Appearance: Appears well, Alert In distress: None - Lochia Lochia Amount: Scant < 10 ml Lochia Color: Rubra/Red - Abdomen Description: Soft, Flat Hernia Present: No Fundal Description: Firm, Midline Fundal Height: u/3 - u/4 - Respiratory Respiratory Status: No respiratory distress - Abdominal Inspection: Normal Distension: No distension - Genitourinary Genitourinary Note: voiding - Extremities Upper extremity: Normal inspection Lower extremities: Normal inspection - Neurological Cognition: Normal Orientation: AAOx4 - Psychological Associated symptoms: Normal affect, Normal mood - Skin Skin Temperature: Warm Skin Moisture: Dry Objective-Diagnostic Laboratory: 05/27/19 06:53 05/27/19 06:53 WBC 18.3 H RBC 4.31 Hgb 13.8 Hct 41.2 MCV 96 MCH 32.1 MCHC 33.6 RDW 14.6 H Plt Count 209 Assessment and Plan(PN) - Assessment and Plan (1) 32 weeks gestation of Is this a current diagnosis for this admission?: Yes (2) Placental abruption in third trimester Is this a current diagnosis for this admission?: Yes (3) labor Qualifiers: labor trimester: third trimester Fetus number: single or unspecified fetus Is this a current diagnosis for this admission?: Yes - Time Spent with Patient Time with patient: Less than 15 minutes Medications reviewed and adjusted accordingly: Yes - Disposition Anticipated Discharge: Home Within: within 24 hours
[2019-05-27] MEDS ORDERED: HYDRALAZINE HCL INJ/PF 20 MG/1 ML SDV ONE (12:07)
[2019-05-27] MEDS ORDERED: ONDANSETRON HCL INJ/PF 4 MG/2 ML SDV ONE (12:07)
[2019-05-27] MEDS ORDERED: ONDANSETRON HCL INJ/PF 4 MG/2 ML SDV IV ONE (12:30)
[2019-05-27] MEDS ORDERED: HYDRALAZINE HCL INJ/PF 20 MG/1 ML SDV IV ONE (12:30)
--- NOTE | 2019-05-27 12:43 | Delivery Summary ---
Del Sum A-C Datetime Report Generated by CPN: 05/27/2019 12:42 DELIVERY PERSONNEL DELIVERY PERSONNEL: [id number] Delivery Doctor:: Alana Metzger CNM Nurse Payroll Manager Certified:: Alana Metzger CNM Labor and Delivery Nurse:: Keri Galan RNtransfer iron operator Nurse:: MAYKEL Pavon Backroom Associate:: Dr. Noé Hardin Nurse Practitioner:: ROMINA Julian Nursery Nurse:: Carie Feldman RN [employer]PRINT AND PATTERN DESIGNER: Nell Méndez CNA II [employer]/PRINT AND PATTERN DESIGNER: [facility] Additional Personnel: : Waqas William, COMPLIANCE TESTING ANALYST MATERNAL INFORMATION Delivery Anesthesia: Epidural Medications After Delivery: Pitocin Bolus-Please Comment; Other-Please Comment Meds After Delivery Comment: pitocin 20u/1000 ml NS bolus cytotec 200 mcg buccal Delivery QBL: 100 Maternal Complications: Abruptio Placenta; Prolonged Labor > 20 Hrs Provider Comments: pt c/o ?SROM, upon inspection, increased thin vaginal bleeding noted. VE C/ BBOW. NICU team called for delivery. When everyone was in place, AROM done, blood tinged fluid noted. Pt pushed to of VFI, attempting to cry and take breathes. Baby girl placed inside of bag to keep warm and then placed on pts abdoman. Cord clamped and cut after 60 seconds. Then NICU team took over care. Cord blood collected. Placenta S/C/I. Blood clot along one edge of her placenta noted, indicating small abruption present. Placenta sent to pathology. Perineum intact, FF w/ decreased lochia, IV Pitocin and 200 mcg SL cytotec given. QBL 100 ml. Apgars 8,9 per NICU team. Both mother and baby in stable condition. Attending MD is Dr Rodriguez LABOR SUMMARY EDC: 07/15/2019 00:00 No. Babies in Womb: 1 Attempted: No Labor Anesthesia: Epidural LABOR INFORMATION Reason for Induction: Not Applicable Onset of Labor: 05/25/2019 06:00 Complete Dilatation: 05/26/2019 10:41 Oxytocin: N/A Group B Beta Strep: unknown Antibiotics # of Doses: 6 Antibiotics Time of Last Dose: 735 Name of Antibiotic Given: penicillin Steroids Given: Full Course; < 24 Hours before Delivery Reason Steroids Not Administered: Not Applicable MEMBRANES Membranes Rupture Method: Artificial Rupture of Membranes: 05/26/2019 10:46 Length of Rupture (hr): 0.07 Amniotic Fluid Color: Bloody Amniotic Fluid Amount: Moderate Amniotic Fluid Odor: Normal STAGES OF LABOR Stage 1 hr: 28 Stage 1 min: 41 Stage 2 hr: 0 Stage 2 min: 9 Stage 3 hr: 0 Stage 3 min: 3 Total Time in Labor hr: 28 Total Time in Labor min: 53 VAGINAL DELIVERY Episiotomy: None Laceration #1: None Laceration Extension #1: N/A Laceration Repair: Not Applicable Sponge Count Correct: N/A Sharps Count Correct: N/A CSECTION DELIVERY Primary Indication: N/A Secondary Indication: N/A CSection Incidence: N/A Labor: N/A Elective: N/A CSection Incision: N/A BABY A INFORMATION Delivery Date/Time: 05/26/2019 10:50 Method of Delivery: Vaginal Born in Route : No : N/A Forceps: N/A Vacuum Extraction: N/A Shoulder Dystocia : No PRESENTATION/POSITION BABY A Presentation: Cephalic Cephalic Presentation: Vertex Vertex Position: OA Breech Presentation: N/A PLACENTA INFORMATION BABY A Placenta Delivery Time : 05/26/2019 10:53 Placenta Method of Delivery: Spontaneous Placenta Status: Delivered SCORES BABY A Heart Rate 1 min: >100 bpm Resp Effort 1 min: Good Cry Reflex Irritability 1 min: Cough or Sneeze or Pulls Away Muscle Tone 1 min: Active Motion Color 1 min: Blue/Pale Resuscitation Effort 1 min: Tactile Stimulation SCORE 1 MIN: 8 Heart Rate 5 min: >100 bpm Resp Effort 5 min: Good Cry Reflex Irritability 5 min: Cough or Sneeze or Pulls Away Muscle Tone 5 min: Active Motion Color 5 min: Body [place], Extremities Blue Resuscitation Effort 5 min: Tactile Stimulation SCORE 5 MIN: 9 INFANT INFORMATION BABY A Gestational Age at Delivery: 32.6 Gestational Status: - <34 Weeks Infant Outcome : Liveborn Condition : Stable Sex: Female IDENTIFICATION BABY A Verification Date/Time: 05/26/2019 11:04 ID Band Number: [id number] Mother's Name Verified: Yes Infant RN Verifying Infant: SPhong Gonzales RN and Alana Galan RN WEIGHT/LENGTH BABY A Infant Birthweight (gm): 1213 Infant Weight (lb): 2 Infant Weight (oz): 11 Infant Length (in): 15.00 Length (cm): 38.10 CORD INFORMATION BABY A No. Cord Vessels: 3 Nuchal Cord : N/A Cord Blood Taken: Yes-For Eval (Mom's Blood Type - or O+) Suction: Mouth ASSESSMENT BABY A Complications- Other: infant to NICU, see nursery record for assessment Skin to Skin: No Skin to Skin Time (min): n/a Backroom Associate/ALS Called : Yes Transferred To: NICU BABY B INFORMATION : N/A SIGNATURES Assignment: Georgiana Rodriguez MD Signature: with User ID: Deann : with User ID: Deann : I was personally available for consultation and serving as supervising physician for the P.
[2019-05-27 12:47] LABS: ABSOLUTE LYMPHOCYTES (AUTO) 1.9 10^3/uL (0.5-4.7); ABSOLUTE MONOCYTES (AUTO) 1.2 10^3/uL (0.1-1.4); BASOPHILS % (AUTO) 0.3 % (0-2); HEMATOCRIT 40.9 % (36.0-47.0); HEMOGLOBIN 13.8 g/dL (12.0-15.5); LYMPHOCYTES % (AUTO) 11.3 % (13-45); MEAN CORPUSCULAR HEMOGLOBIN 31.7 pg (27.0-33.4); MEAN CORPUSCULAR HGB CONC 33.6 g/dL (32.0-36.0); MEAN CORPUSCULAR VOLUME 94 fl (80-97); MONOCYTES % (AUTO) 6.8 % (3-13); PLATELET COUNT 238 10^3/uL (150-450); RED BLOOD COUNT 4.34 10^6/uL (3.72-5.28); RED CELL DISTRIBUTION WIDTH 14.5 % (11.5-14.0); SEGMENTED NEUTROPHILS % (AUTO) 81.6 % (42-78); TOTAL CELLS COUNTED % (AUTO) 100 %; WHITE BLOOD COUNT 17.2 10^3/uL (4.0-10.5)
[2019-05-27] MEDS ORDERED: PANTOPRAZOLE SODIUM 40 MG VIAL IV ONE (13:00)
[2019-05-27 13:09] LABS: ALANINE AMINOTRANSFERASE 19 U/L (9-52); ALBUMIN 4.2 g/dL (3.5-5.0); ALKALINE PHOSPHATASE 172 U/L (38-126); AMYLASE 125 U/L (30-110); ANION GAP 11 (5-19); ASPARTATE AMINO TRANSFERASE 36 U/L (14-36); BILIRUBIN,DIRECT 0.2 mg/dL (0.0-0.4); BILIRUBIN,TOTAL 0.3 mg/dL (0.2-1.3); BLOOD UREA NITROGEN 12 mg/dL (7-20); CALCIUM 9.5 mg/dL (8.4-10.2); CARBON DIOXIDE 24 mmol/L (22-30); CHLORIDE 102 mmol/L (98-107); GLUCOSE 92 mg/dL (75-110); POTASSIUM 4.4 mmol/L (3.6-5.0); TOTAL PROTEIN 7.2 g/dL (6.3-8.2); URIC ACID 2.8 mg/dL (2.5-6.2)
[2019-05-27 13:10] VITALS: BP 173/81
--- NOTE | 2019-05-27 13:39 | PDOC PROGRESS REPORT ---
Subjective Progress Note for:: 05/27/19 Subjective:: Called to patients bedside second to severe epigastric pain and nausea. Patient is also noted to have elevated blood pressures in the severe range. Pt denies headaches, visual changes and right upper quadrant pain. Patient is PPD#1 s/p /PTD at 32 weeks with IUGR and abruption. Patient was noted to have mild range blood pressures in labor with magnesium on board. Pt was noted to have severe range blood pressures in the recovery period on L&D. Labs completed were noted to be normal. Reason For Visit: PPD#1, HTN, Severe Epigastric pain, Nausea Physical Exam - Physical Exam Vital Signs: Temp Pulse Resp BP Pulse Ox 98.3 F 76 24 H 173/81 H 100 05/27/19 11:45 05/27/19 11:45 05/27/19 11:45 05/27/19 11:45 05/27/19 11:45 Intake & Output 05/26/19 05/27/19 05/28/19 06:59 06:59 06:59 Intake Total 500 200 Balance 500 200 Weight 53.8 kg General appearance: PRESENT: cooperative, severe distress - with epigastric pain, thin Head exam: PRESENT: atraumatic, normocephalic Mouth exam: PRESENT: moist Teeth exam: PRESENT: dental caries, poor dentation Neck exam: PRESENT: full ROM Cardiovascular exam: PRESENT: RRR, +S1, +S2 GI/Abdominal exam: PRESENT: normal bowel sounds, soft, tenderness - regardless of touch in the epigastrum Neurological exam: PRESENT: alert Psychiatric exam: PRESENT: anxious Skin exam: PRESENT: dry, intact, normal color, warm Result Laboratory Results: 05/27/19 06:53 WBC 18.3 H RBC 4.31 Hgb 13.8 Hct 41.2 MCV 96 MCH 32.1 MCHC 33.6 RDW 14.6 H Plt Count 209 Impressions: Obstetrics Ultrasound 05/25/19 00:00 IMPRESSION: Cervix is effaced and open with bulging membranes. Trimester of : Third trimester - 28 weeks to delivery. Assessment & Plan - Diagnosis (1) Hypertension, condition or complication Is this a current diagnosis for this admission?: No - Plan Summary Plan Summary: 1. Severe Preeclamptic labs, amylase and lipase 2. Hydralzine 10mg to bring HTN out of severe range 3. Protonix for epigastric pain 4. Continuous pulse ox
[2019-05-27 14:04] LABS: UR PRO/CREAT RATIO RESULT 4.1 mg/mg (0.0-0.2); URINE PROTEIN 256.8 mg/dL (<12)
--- NOTE | 2019-05-27 14:47 | Progress Note ---
Provider Note Provider Note: Called to about patient's protein/creatinine ration to note how it was collected. Pt was noted to have a urine protein to creatinine (UPC) ratio of 4.1. Nursing was asked about mode of collection and was noted not to be an in and out catheter. Nursing was asked to catheterize patient for UPC, nursing stated patient signed out AMA to go home and smoke a blunt. Nursing was asked to call patient back in for re-evaluation of labs. Nursing stated she called patient back and patient stated she was not coming back in. Nursing was asked to disclose patient's number ([phone]), number called by me and message left for patient to report back to hospital second to concerning lab finding.
[2019-05-27 18:19] LABS: HSV-I IGG AB <0.91 index (0.00-0.90)
== END 2019-05-27 13:58 | disposition left against medical advice (07) | DRG 805 ==
LOC: LC 09:52 → LR 11:23 → 2S 05-26 13:04
PROVIDERS: ADMIT Obstetrics & Gynecology Gynecology; ATTEND Obstetrics & Gynecology Gynecology
PROC: 10E0XZZ Delivery of Products of Conception, External Approach (ICD-10-PCS; principal; 2019-05-26)
DX: O45.93 Premature separation of placenta, unspecified, third trimester (principal); O60.23X0 Term delivery with preterm labor, third trimester, not applicable or unspecified; Z37.0 Single live birth; O99.324 Drug use complicating childbirth; O63.9 Long labor, unspecified; O36.5930 Maternal care for other known or suspected poor fetal growth, third trimester, not applicable or unspecified; F12.90 Cannabis use, unspecified, uncomplicated; O14.15 Severe pre-eclampsia, complicating the puerperium; O99.334 Smoking (tobacco) complicating childbirth; F17.210 Nicotine dependence, cigarettes, uncomplicated; Z88.8 Allergy status to other drugs, medicaments and biological substances; Z62.810 Personal history of physical and sexual abuse in childhood; Z3A.32 32 weeks gestation of pregnancy
CPT/HCPCS: 36415; 76815; 80053; 80307; 80349; 81001; 82150; 82570; 83615; 83690; 84156; 84550; 85025; 85027; 85384; 85610; 85730; 86592; 86695; 86850; 86900; 86901; 88307; 94760; 96372; G0480; J0360; J0702; J2405; J2540; J2590; J3010; J3475; J3490; S0164